=== PATIENT | female | born 2000 | race Two or more races ===

== ENCOUNTER 2025-04-08 12:02 | Emergency (ER) | payer MEDICAID, SELFPAY ==
[2025-04-08 12:10] VITALS: BP 141/87; PULSE 97; RESP 16; TEMP 36.6; O2SAT 98; BMI 22.6
[2025-04-08 12:47] LABS: Basophils # (Auto) 0.0 Thou/mm3 (0.0-0.2); Basophils % (Auto) 0 % (0-2.5); Eosinophils # (Auto) 0.1 Thou/mm3 (0.0-0.5); Eosinophils % (Auto) 2 % (0-10); Hematocrit 41.5 % (36.0-46.0); Hemoglobin 14.7 g/dL (12.0-16.0); Immature Granulocytes Auto 0.07 Thou/mm3 (0.00-0.00); Lymphocytes # (Auto) 2.8 Thou/mm3 (1.0-4.8); Lymphocytes % (Auto) 37 % (10-50); Mean Corpuscular HGB Conc 35.4 g/dl (31.0-37.0); Mean Corpuscular Hemoglobin 30.4 pg (25.0-35.0); Mean Corpuscular Volume 86 fL (80-100); Monocytes # (Auto) 0.9 Thou/mm3 (0.0-0.8); Monocytes % (Auto) 12 % (0-12); Neutrophils # (Auto) 3.6 Thou/mm3 (1.8-7.7); Neutrophils % (Auto) 48 % (37-80); Nucleated Red Blood Cell # 0.00 Thou/mm3 (0.00-0.00); Nucleated Red Blood Cell % 0 /100 WBC (0); Platelet Count 425 Thou/mm3 (140-440); RDW Standard Deviation 39.3 fL (36.4-46.3); Red Blood Count 4.83 Miln/mm3 (4.00-5.20); White Blood Count 7.5 Thou/mm3 (3.6-11.0)
[2025-04-08 13:00] LABS: HCG,Qualitative Serum Negative
[2025-04-08 13:02] LABS: INR 1.0 (0.9-1.3); Partial Thromboplastin Time 34.9 Seconds (22.0-36.0); Prothrombin Time 10.9 Seconds (9.0-12.2)
[2025-04-08 13:06] LABS: Alanine Aminotransferase 22 U/L (10-49); Albumin, Serum 5.3 gm/dL (3.5-5.0); Albumin/Globulin Ratio 1.8 (1.2-2.2); Alkaline Phosphatase 112 U/L (46-116); Anion Gap 13 (7-16); Aspartate Amino Transferase 19 U/L (0-34); BUN/Creatinine Ratio 10 Ratio (12-20); Bilirubin,Total 0.4 mg/dL (0.3-1.2); Blood Urea Nitrogen 6 mg/dL (9-23); Calcium 9.8 mg/dL (8.3-10.6); Calcium (Corrected) 9.8 mg/dL (8.5-10.1); Carbon Dioxide 28.0 mMol/L (20.0-31.0); Chloride 104 mMol/L (98-107); Creatinine (Component) 0.6 mg/dL (0.6-1.3); Estimated Creatinine Clearance 132.3 mL/min (>60); Globulin 3.0 gm/dL (2.3-3.5); Glucose 86 mg/dL (74-106); Lipase 32 U/L (12-53); Osmolality,Calculated 285 (275-295); Potassium 3.9 mMol/L (3.4-5.1); Sodium 145 mMol/L (136-145); Total Protein 8.3 gm/dL (5.7-8.2); eGFR > 60 See Note
--- NOTE | 2025-04-08 13:55 | EDNOTE_ITS ---
<Statement entered by Joyce Miner MD - 04/23/25 07:22> As co-signing physician, I was present and available for consult prn. I concur with the plan and care as documented by the midlevel provider. ED General RME/HPI General Chief complaint: General Adult/Misc Complain Stated complaint: R) SIDE PAIN 5/10, BLOOD IN STOOL X 1 WK Time Seen by Provider: 04/08/25 12:12 Arrival date/time: 04/08/25 12:02 24-year-old female presents to the Emergency Department today for complaints of blood in stool patient reports that she recently had a viral illness where she had vomiting and diarrhea patient also reports history of hemorrhoids Limitations: no limitations Related Data Previous Rx's ?Medication ?Instructions ?Recorded ibuprofen 400 mg tablet 400 mg PO QID PRN fever or p ain 06/01/19 #30 tabs psyllium husk 3 gram/5.4 gram oral 1 tbsp PO QDAY cons tipation #284 06/01/19 powder grams ibuprofen 400 mg tablet 400 mg PO Q8H PRN pain #20 t abs 01/07/20 hydrocortisone acetate 25 mg 25 mg UT BID #24 ea 04/08 rectal suppository (Anusol-HC) Allergies Allergy/AdvReac Type Severity Reaction Status Date / Time No Known Allergies Allergy Verified 04/08/25 12:05 Review of Systems Review of Systems Systems Reviewed: All systems reviewed, normal except as documented Constitutional Constitutional: Reports system reviewed and no additional complaints, except as documented, Denies fever(s) and Denies headache(s) Eyes Eyes: Reports system reviewed and no additional complaints, except as documented and Denies blurry vision ENT Ears, Nose, Mouth, and Throat: Reports system reviewed and no additional complaints, except as documented, Denies headache(s), Denies nasal congestion and Denies nasal discharge Cardiovascular Cardiovascular: Reports system reviewed and no additional complaints, except as documented, Denies chest pain and Denies dyspnea Respiratory Respiratory: Reports system reviewed and no additional complaints, except as documented, Denies chest congestion, Denies cough and Denies dyspnea Gastrointestinal Gastrointestinal: Reports system reviewed and no additional complaints, except as documented, Denies abdominal pain and Reports hematochezia Integumentary/Breasts Skin/Breast: Reports system reviewed and no additional complaints, except as documented and Denies rash Neurologic Neurologic: Reports system reviewed and no additional complaints, except as documented, Reports as per HPI and Denies headache(s) Past Medical History Past Medical History NEUROLOGIC: Negative Neurological Disorders CARDIAC: Negative Cardiac Disorders or Congestive Heart Failure RESPIRATORY: Negative Chronic Obstructive Pulmonary Disease (COPD) GASTROINTESTINAL: Negative Gastrointestinal Disorders GENITOURINARY: Negative Genitourinary Disorders or Renal Disease MUSCULOSKELETAL: Negative Musculoskeletal Disorders ENDOCRINE: Negative Endocrine Disorders, Diabetes Mellitus Type 1 or Diabetes Mellitus Type 2 HEMATOLOGIC: Negative Blood Disorders OTHER HISTORY: Negative Autoimmune Disease, Shingles, Blood Transfusions, Anesthesia Reactions, MRSA, VRSA, Chicken Pox, Clostridium Difficile or Cancer Family History FAMILY HISTORY: Positive Family Cardiac Disorders (HTN); Negative Family Cancer, Family Surgery or Family Anesthesia Reaction Social History SMOKING STATUS: Never smoker SECOND HAND EXPOSURE: No ED Exam General Limitations: Present no limitations General appearance: Present alert and in no apparent distress Head Head exam: Present atraumatic Eye Eye exam: Present normal appearance, PERRL and EOMI ENT ENT exam: Present normal exam, normal oropharynx and mucous membranes moist Neck Neck exam: Present normal inspection, full ROM and trachea midline Chest Chest inspection: Present normal inspection and symmetric chest wall rise Respiratory Respiratory exam: Present normal lung sounds bilaterally; Absent respiratory distress Cardiovascular Cardiovascular exam: Present regular rate, normal rhythm and normal heart sounds Abdominal Exam Abdominal exam: Present soft and normal bowel sounds; Absent distention, tenderness, guarding, rebound or rigidity Extremities Exam Extremities exam: Present normal inspection and full ROM Back Exam Back exam: Present normal inspection and full ROM Neurological Exam Neurological exam: Present alert, oriented X3 and CN II-XII intact Psychiatric Psychiatric exam: Present normal affect and normal mood Skin Skin exam: Present warm, dry, intact and normal color Course Quality Measures none Orders Category Date Time Status CBC Stat Lab 04/08/25 12:22 Completed Comprehensive Metabolic Panel Stat Lab 04/08/25 12:22 Completed HCG,Qualitative Serum Stat Lab 04/08/25 12:22 Completed Lipase Stat Lab 04/08/25 12:22 Completed Partial Thromboplastin Time Stat Lab 04/08/25 12:22 Completed Prothrombin Time with INR Stat Lab 04/08/25 12:22 Completed Vital Signs Vital signs: Vital Signs Temperature 97.8 F 04/08/25 12:10 Pulse Rate 97 04/08/25 12:10 Respiratory Rate 16 04/08/25 12:10 Blood Pressure 141/87 H 04/08/25 12:10 Pulse Oximetry (%) 98 04/08/25 12:10 Oxygen Delivery Method Room Air 04/08/25 12:10 O2 saturation 98% on room air within the limits Discharge Plan Plan Patient Disposition: HOME (Self Care) Discharge Disposition comment: Stable Prescriptions/Referrals Prescriptions/Med Rec: New hydrocortisone acetate [Anusol-HC] 25 mg suppository 25 mg UT BID Qty: 24 0RF No Action ibuprofen 400 mg tablet 400 mg PO Q8H PRN (Reason: pain) Qty: 20 0RF psyllium husk 3 gram/5.4 gram powder 1 tbsp PO QDAY Qty: 284 0RF Rx Instructions: mix into at least 8 oz of water or juice before administering ibuprofen 400 mg tablet 400 mg PO QID PRN (Reason: fever or pain) Qty: 30 0RF Problem List Clinical Impression: Rectal bleed, Hemorrhoid Patient/Caregiver Discharge Instructions Education Materials: ED Hemorrhoids Additional Instructions: Please follow up with your primary care doctor in the next 24-48hrs for any worsening symptoms return here immediately Please have follow-up with GI specialist if your symptoms persist Print Language: Thai Stand Alone Forms: [employer] Award Info., Work/School Release, Patient Portal Info Letter PA/WINTERIZER Supervising Physician PA/WINTERIZER Supervising Physician: dr miner MDM Narrative MDM hospital course (for use when minimal MDM required): 24-year-old female presents to the Emergency Department today for complaints of blood in stool patient reports that she recently had a viral illness where she had vomiting and diarrhea patient also reports history of hemorrhoids Clinically patient well-appearing does not appear look toxic patient does not appear pale patient hemodynamically stable Lab work obtained no acute emergent findings noted hemoglobin normal Explained to the patient should symptoms persist or worsen she should follow-up with GI specialist for further evaluation for colonoscopy patient states understanding Clinical Information Provided by: patient Medical Records reviewed [facility] Meds/Rx considered, not ordered None Labs/Rad/Tests considered, not ordered Describe: Obtained Chronic Illness/Social Conditions which may negatively complicate care or outcome(s)-explain: None or not applicable EKG EKG not done Labs Labs: interpreted by me Imaging Imaging interpretation: none Medication Administration(s) Given Diagnosis Differential Diagnosis ED Complaint MDM: Internal hemorrhoid, external hemorrh oid, GI bleed
== END 2025-04-08 14:08 | disposition home or self-care (01) ==
PROVIDERS: Nurse Practitioner Primary Care; Emergency Provider Emergency Medicine
DX: K64.9 Unspecified hemorrhoids (principal); K92.1 Melena
CPT/HCPCS: 36415; 80053; 83690; 84703; 85025; 85610; 85730; 99282